=== PATIENT | female | born 1960 | race Caucasian/White ===

== ENCOUNTER 2021-09-22 13:28 | Emergency (ER) | payer MEDICAID, SELFPAY ==
--- NOTE | 2021-09-22 13:33 | CTR_ITS ---
PROCEDURE INFORMATION: Exam: CT Abdomen And Pelvis Without Contrast Exam date and time: 09/22/2021 1:33 PM Age: 60 years old Clinical indication: Abdominal pain; Flank; Left; Additional info: She cannot take contrast, flank pain TECHNIQUE: Imaging protocol: Computed tomography of the abdomen and pelvis without contrast. Radiation optimization: All CT scans at this facility use at least one of these dose optimization techniques: automated exposure control; mA and/or kV adjustment per patient size (includes targeted exams where dose is matched to clinical indication); or iterative reconstruction. COMPARISON: NM Hepatobiliary w * [id number] 08/03/2017 8:25 AM RADIATION DOSE METRICS: Total DLP (mGy-cm): 2260.97 FINDINGS: Tubes, catheters and devices: There is a peritoneal dialysis catheter coiled right lower quadrant. Liver: Fatty liver. Gallbladder and bile ducts: No calcified stones. No ductal dilation. Pancreas: No ductal dilation. Spleen: No splenomegaly. Adrenal glands: Normal. No mass. Kidneys and ureters: No calcified renal or ureteral stones. No hydronephrosis. Stomach and bowel: No obstruction. No mucosal thickening. Appendix: No evidence of appendicitis. Intraperitoneal space: No free air. No significant fluid collection. Vasculature: No abdominal aortic aneurysm. Lymph nodes: No enlarged lymph nodes. Urinary bladder: Unremarkable as visualized. Reproductive: Status post hysterectomy. Bones/joints: Unremarkable. No acute fracture. Soft tissues: Unremarkable. CT/CT kidney stone [id number] IMPRESSION: No acute findings. Radiation Dose CTDIVOL = (mGy): DLP = 2260.97 (mGy-cm)
[2021-09-22 13:43] VITALS: BP 144/102; PULSE 83; RESP 20; TEMP 36.7; O2SAT 97; BMI 35.8
[2021-09-22 13:52] LABS: Basophils # 0.1 10^3/uL (0.0-0.1); Basophils % 0.6 %; Eosinophils # 0.3 10^3/uL (0.0-0.8); Hematocrit 43.3 % (37.0-47.0); Lymphocytes # 4.5 10^3/uL (0.8-4.8); Lymphocytes % 33.1 %; Mean Corpuscular HGB Conc 32.3 g/dL (30.0-36.0); Mean Corpuscular Hemoglobin 28.7 pg (28.0-34.0); Mean Corpuscular Volume 88.9 fl (81-99); Mean Platelet Volume 10.5 fL (7.4-10.4); Monocytes # 0.9 10^3/uL (0.2-0.9); Monocytes % 6.3 %; Neutrophils # 7.83 10^3/uL (1.8-7.7); Neutrophils % 57.7 %; Nucleated Red Blood Cells % 0 %; Platelet Count 386 10^3/cmm (130-400); Red Blood Count 4.87 10^6/uL (4.1-5.3); Red Cell Distribution Width 12.8 % (12.1-15.1); White Blood Count 13.6 10^3/uL (4.0-10.0)
--- NOTE | 2021-09-22 13:56 | PC.NURSE ---
Pt arrvied via EMs from home, EMS reports pt was standing against a pillar when they arrived and was unable to walk to the stretcher. Pt reports she has a dialysis port was placed for stage 4 CKD but has not been used. Pt states about 2 weeks ago she was seen for abdominal pain and was released, pt reports the abdominal pain lasted until this morning when the pain moved to pts left flank area. Pt reports pain 10/10, states the pain is constant and feels like someone is squeezing her. Pt A/O x4, vs taken pt placed on monitor. EMS reports giving pt 10mg Ketamine en route and had a significant psych reaction. Pt states she has a number of allergies to pain medications
[2021-09-22 14:12] LABS: Alanine Aminotransferase 18 U/L (0-33); Alkaline Phosphatase 97 IU/L (35-105); Anion Gap 16.5 (5-19); Aspartate Amino Transferase 16 U/L (0-32); Blood Urea Nitrogen 28 mg/dL (6-20); Calcium 9.3 mg/dL (8.5-10.5); Carbon Dioxide 26 mmol/L (22-29); Chloride 98 mmol/L (98-107); Globulin 3.7 g/dL (1.3-4.6); Glomerular Filtration Rate 14.8 mL/min (90-130); Glucose 204 mg/dL (65-115); Lipase 77 U/L (13-60); Osmolality Calculated 293 mOsm/kg (285-295); Potassium 4.5 mmol/L (3.5-5.1); Sodium 136 mmol/L (136-145); Total Bilirubin 0.4 mg/dL (0.15-1.2); Total Protein 7.7 g/dL (6.6-8.7)
[2021-09-22 14:23] VITALS: RESP 24
[2021-09-22] MEDS: morphine 4 mg/mL SDV 1 mL IVP (14:23)
[2021-09-22] MEDS: sodium chloride 0.9% 500 ML IV (14:28)
[2021-09-22 14:38] VITALS: BP 125/80; PULSE 74; RESP 22; O2SAT 97
--- NOTE | 2021-09-22 15:02 | ED_ITS ---
HPI - General Adult General: Chief complaint: Back Pain/Injury Stated complaint: FLANK PAIN Time Seen by Provider: 09/22/21 13:30 History of Present Illness: HPI narrative: Patient is a 60-year-old female with a history of CKD with a peritoneal dialysis catheter presenting to the emergency room for evaluation of new onset of left sided flank pain at 11 AM. Patient has for the last 2 weeks has had right chronic right-sided lower abdominal pain. However this morning shortly after eating Thanksgiving meal, patient developed left flank pain. Patient report intermittent nausea without any vomiting. Denies any fever chills, difficulty urination, hematuria /polyuria. Patient has no history of kidney stones. No other prior abdominal surgeries. Patient has no problems stooling or passing gas. No complaints of chest pain, shortness breath palpitation, fever/chills, cough, runny nose, sore throat. Onset: 30 minutes ago Duration: 30 minutes Location:home Severity:moderate Review of Systems Narrative: Constitutional: No fever, no chills. HEENT: No vision changes CV: No chest pain, no palpitations PULM: no cough, no dyspnea. GI: No abdominal pain, no N/V/D. : No dysuria MSKEL: No muscle pain SKIN: No new rashes, no lesions. NEURO: No headache, no focal weakness. HEME: No visible bruises PSYCH: Normal mood Physical Exam Narrative: EXAM NARRATIVE: Head: Atraumatic Eyes: PERRL, conjunctiva without injection ENT: Mucous membrane moist NECK: Supple, ROM intact LUNGS: LCTAB, no crackles/rhonchi CV: RRR ABDOMEN: Soft, nontender in all quadrants EXTREMITY: Normal ROM SKIN: No rash or erythema NEURO: Awake and alert, no focal motor deficits PSYCH: Normal mood and affect Course Vital Signs: Vital signs: Vital Signs Temperature 98.1 F 09/22/21 13:43 Pulse Rate 74 09/22/21 14:38 Respiratory Rate 20 H 09/22/21 18:22 Blood Pressure 125/80 09/22/21 14:38 Pulse Oximetry 97 09/22/21 14:38 MDM - General Adult MDM Narrative: Medical decision making narrative: Patient is a 60-year-old female with history of CKD with peritoneal dialysis catheter presenting to the emergency room for evaluation of new onset of left flank pain since 11 AM this morning. On exam, patient has mild tenderness palpation left lateral flank. White count is noted to be 13.6 on blood work. Creatinine of 3.2. When discussed with patient, patient tells me that she does not know her baseline numbers. Patient is able to urinate without any difficulty. CT abdomen pelvis without contrast showed peritoneal dialysis catheter in place, there is no signs of catheter issues. There is no signs of renal stone. I discussed with him, with the white count, assessment today is limited given her history of chronic kidney issue as I am unable to obtain a contrast study to evaluate for possible signs of intra-abdominal infection. Patient's urine is not consistent with UTI. On these findings, it is imperative that the patient follow-up with her primary care provider in the next few days for further evaluation of her symptoms. Patient reassures me that he will follow with Dr. Wan in [place] to reassess her kidney function and to determine whether patient is a candidate for dialysis at this time. At the present time, patient's pain is well controlled with pain medicine and IVF. I do not suspect that there is any acute intra- abdominal pathology today. Patient is given close follow-up with primary care provider next 48 to 72 hours. Patient agrees with plan to do so. Rx tylenol, menthol and lidocaine patch PRN pain Disposition: Discharge. Patient counseled regarding diagnostic impression, treatment plan. Patient given ED strict return precautions to return for continuation, worsening, or development of new symptoms. Instructed to f/u w/ PCP regarding symptoms today. Patient verbalized understanding. Lab Data: Labs: Lab Results 09/22/21 09/22/21 09/22/21 13:44 13:44 16:40 WBC 13.6 10^3/uL H 10 ^3/uL (4.0-10.0) RBC 4.87 10^6/uL 10^6 /uL (4.1-5.3) Hgb 14.0 g/dL g/dL (11.5-15.3) Hct 43.3 % % (37.0-47.0) MCV 88.9 fl fl (81-99) MCH 28.7 pg pg (28.0-34.0) MCHC 32.3 g/dL g/dL (30.0-36.0) RDW 12.8 % % (12.1-15.1) Plt Count 386 10^3/cmm 10^3 /cmm (130-400) MPV 10.5 fL H fL (7.4-10.4) Neut % (Auto) 57.7 % % Lymph % (Auto) 33.1 % % [place] % (Auto) 6.3 % % Eos % (Auto) 2.0 % % Baso % (Auto) 0.6 % % Neut # (Auto) 7.83 10^3/uL H 10 ^3/uL (1.8-7.7) Lymph # (Auto) 4.5 10^3/uL 10^3/ uL (0.8-4.8) [place] # (Auto) 0.9 10^3/uL 10^3/ uL (0.2-0.9) Eos # (Auto) 0.3 10^3/uL 10^3/ uL (0.0-0.8) Baso # (Auto) 0.1 10^3/uL 10^3/ uL (0.0-0.1) Nucleated RBC % (a uto) 0 % % Nucleated RBCs # 0.0 /100WBC /100W BC Sodium 136 mmol/L mmol/L (136-145) Potassium 4.5 mmol/L mmol/L (3.5-5.1) Chloride 98 mmol/L mmol/L (98-107) Carbon Dioxide 26 mmol/L mmol/L (22-29) Anion Gap 16.5 (5-19) BUN 28 mg/dL H mg/dL (6-20) Creatinine 3.2 mg/dL H mg/dL (0.5-0.9) GFR Calculation 14.8 mL/min L mL/ min (90-130) Glucose 204 mg/dL H mg/dL (65-115) Calculated Osmolal ity 293 mOsm/kg mOsm/ kg (285-295) Calcium 9.3 mg/dL mg/dL (8.5-10.5) Total Bilirubin 0.4 mg/dL mg/dL (0.15-1.2) AST 16 U/L U/L (0-32) ALT 18 U/L U/L (0-33) Alkaline Phosphata se 97 IU/L IU/L (35-105) Total Protein 7.7 g/dL g/dL (6.6-8.7) Albumin 4.0 g/dL g/dL (3.5-5.2) Globulin 3.7 g/dL g/dL (1.3-4.6) Lipase 77 U/L H U/L (13-60) Urine Color Yellow (Yellow) Urine Appearance Sl hazy (CLEAR) Urine pH 5 (5-7) Ur Specific Gravit y 1.020 (1.005-1.030) Urine Protein 3+ H (Negative) Urine Glucose (UA) Trace H (Normal) Urine Ketones Negative (Negative) Urine Blood Neg (Negative) Urine Nitrate Negative (Negative) Urine Bilirubin 1+ H (Negative) Urine Urobilinogen Norm mg/dL mg/dL (Negative) Ur Leukocyte Obdulia ase Negative (Negative) Urine RBC None /hpf /hpf (0-2) Urine WBC None /hpf /hpf (0-5) Ur Squamous Epith Cells 15-25 /hpf H /hpf (0-5) Amorphous Sediment Not Reportable Urine Bacteria 1+ /hpf H /hpf (NONE) Imaging Data^: Other Imaging: Radiologist's impression: [email or web address] [id number] Scan ReportSigned Patient: Marquita Quinones AUnit #: [id number]: 1960cct#:[id number]/Sex: 60 / FADM Date: 09/22/21Loc: ERRoom/Bed:Attending Dr: Ordering Provider/Ordering MD: Javier Burnett MD Date of Service: 09/22/21 Procedure(s): CT kidney stone [id number] Accession Number(s): [id number] Report Number: [id number] PROCEDURE INFORMATION: Exam: CT Abdomen And Pelvis Without Contrast Exam date and time: 09/22/2021 1:33 PM Age: 60 years old Clinical indication: Abdominal pain; Flank; Left; Additional info: She cannot take contrast, flank pain TECHNIQUE: Imaging protocol: Computed tomography of the abdomen and pelvis without contrast. Radiation optimization: All CT scans at this facility use at least one of these dose optimization techniques: automated exposure control; mA and/or kV adjustment per patient size (includes targeted exams where dose is matched to clinical indication); or iterative reconstruction. COMPARISON: NM Hepatobiliary w * [id number] 08/03/2017 8:25 AM RADIATION DOSE METRICS: Total DLP (mGy-cm): 2260.97 FINDINGS: Tubes, catheters and devices: There is a peritoneal dialysis catheter coiled right lower quadrant. Liver: Fatty liver. Gallbladder and bile ducts: No calcified stones. No ductal dilation. Pancreas: No ductal dilation. Spleen: No splenomegaly. Adrenal glands: Normal. No mass. Kidneys and ureters: No calcified renal or ureteral stones. No hydronephrosis. Stomach and bowel: No obstruction. No mucosal thickening. Appendix: No evidence of appendicitis. Intraperitoneal space: No free air. No significant fluid collection. Vasculature: No abdominal aortic aneurysm. Lymph nodes: No enlarged lymph nodes. Urinary bladder: Unremarkable as visualized. Reproductive: Status post hysterectomy. Bones/joints: Unremarkable. No acute fracture. Soft tissues: Unremarkable. CT/CT kidney stone [id number] IMPRESSION: No acute findings. Radiation Dose CTDIVOL = (mGy): DLP = 2260.97 (mGy-cm) Dictated By:Ash Osborn MDSigned By:Ash Osborn MDSigned Date/Time:09/22/21 1525DD/ 1333 Discharge Plan Discharge Patient Disposition: Home Clinical Impression: CKD (chronic kidney disease), Back pain Condition: Stable Prescriptions: New acetaminophen 500 mg tablet 500 mg PO Q6H PRN (Reason: pain) 5 Days Qty: 20 RF: 0 Biofreeze (menthol) 5 % gel 1 ea topical BID PRN (Reason: pain) 10 Days Qty: 1 RF: 0 lidocaine 5 % adhesive patch,medicated 1 patch topical DAILY PRN (Reason: pain) 10 Days Qty: 10 RF: 0 No Action clonidine HCl 0.1 mg tablet 0.1 mg PO Q6H RF: 0 torsemide 10 mg tablet 10 mg PO DAILY RF: 0 amlodipine 5 mg tablet 5 mg PO DAILY RF: 0 allopurinol 100 mg tablet 100 mg PO DAILY RF: 0 gabapentin 300 mg capsule 300 mg PO TID PRN (Reason: Pain) RF: 0 Linzess 145 mcg capsule 14 mcg PO DAILY RF: 0 Discharge Orders: Discharge ED (Routine); Ordered 09/22/21 Ordered By: Javier Burnett Referrals: Arun Marquez [Primary Care Provider] - Discharge Diet: Advance as tolerated Discharge Activity: Resume usual activity Patient Instructions: Chronic Kidney Disease (ED) Activity Restrictions/Additional Instructions: Please follow up with your kidney doctor in [place]. Come back to the emergency room if your pain worsens, if any fever chills, nausea/vomiting, or any new or concerning complaints. Coding Level of Care Code ED Metrologist for Rekha Javier
[2021-09-22 17:09] LABS: Protein Urine 3+ (Negative); Urine Appearance SL Hazy (CLEAR); Urine Color Yellow (Yellow); pH Urine 5 (5-7)
[2021-09-22 17:10] LABS: Add Urine Microscopic? YES; Bilirubin Urine 1+ (Negative); Blood Urine Neg (Negative); Glucose Urine UA Trace (Normal); Ketones Urine Negative (Negative); Leukocyte Esterase Urine Negative (Negative); Nitrate Urine Negative (Negative); Urobilinogen Urine Norm (Negative)
[2021-09-22 17:13] LABS: Add Urine Culture? No; Bacteria Urine 1+ /hpf; Squamous Epithelial Cell Urine 15-25 /hpf (0-5)
[2021-09-22 18:18] VITALS: RESP 20
[2021-09-22] MEDS: oxyCODONE-APAP 5-325 mg Tablet 1 TAB PO (18:18)
[2021-09-22 18:22] VITALS: RESP 20
== END 2021-09-22 18:23 | disposition home or self-care (01) ==
PROVIDERS: Emergency Provider Emergency Medicine; PCP Student in an Organized Health Care Education/Training Program
DX: N18.9 Chronic kidney disease, unspecified (principal); M54.9 Dorsalgia, unspecified
CPT/HCPCS: 74176; 80053; 81001; 83690; 85025; 96361; 96374; 99284; 99291; J2270; J7040

== ENCOUNTER → 2022-10-11 09:52 | Outpatient (BNVA) | payer MEDICAID, SELFPAY | PROVIDERS: PCP Registered Nurse; Visit Provider Nurse Practitioner | DX: R51.9 Headache, unspecified (principal); R53.83 Other fatigue | CPT/HCPCS: 36415; 82607; 84443; 85025; 85651; 99204 ==

== ENCOUNTER → 2022-10-18 12:57 | Outpatient (BNVA) | payer MEDICAID, SELFPAY | PROVIDERS: PCP Family Medicine; Visit Provider Otolaryngology | DX: M26.622 Arthralgia of left temporomandibular joint (principal); H81.10 Benign paroxysmal vertigo, unspecified ear; H91.90 Unspecified hearing loss, unspecified ear; H93.12 Tinnitus, left ear; E66.9 Obesity, unspecified; Z68.35 Body mass index [BMI] 35.0-35.9, adult | CPT/HCPCS: 99203 ==